=== PATIENT | female | born 1965 | race Caucasian/White ===

== ENCOUNTER 2021-03-24 13:18 | Emergency (ER) | payer OTHER, MEDICAID, SELFPAY ==
[2021-03-24] VITALS (36 sets, daily range): BP systolic 73–184; BP diastolic 49–119; PULSE 78–135; RESP 14–41; TEMP 36.3; O2SAT 89–100
[2021-03-24] MEDS: ONDANSETRON 4 MG/2 ML INJ IV ×2 (13:55→15:11)
[2021-03-24] MEDS: SODIUM CHLORIDE 0.9% 1,000 ML 150 ML IV ×2 (13:55→21:34)
[2021-03-24 13:58] LABS: Add Manual Diff / Slide Review NO; Basophils Absolute Auto 100 /uL (0-100); Basophils Percent Auto 0.6 % (0-2); Eosinophils Absolute Auto 0 /uL (0-450); Eosinophils Percent Auto 0.1 % (2-4); Hematocrit 43.3 % (36-46); Hemoglobin 14.4 g/dL (12.0-16.0); Lymphocytes Absolute Auto 300 /uL (1100-4500); Lymphocytes Percent Auto 2.3 % (25-40); Mean Corpuscular HGB Conc 33.3 % (30-36); Mean Corpuscular Hemoglobin 35.4 PG (26-34); Monocytes Absolute Auto 300 /uL (0-900); Monocytes Percent Auto 2.7 % (3-14); Neutrophils Absolute Auto 11600 /uL (1500-7000); Neutrophils Percent Auto 94.3 % (50-75); Platelet Count 129 X10^3/uL (150-400); Red Blood Cell Count 4.08 X10^6/uL (4.0-5.2); Red Cell Distribution Width 12.6 % (11.6-14.8); White Blood Cell Count 12.3 X10^3/uL (4.5-11.0)
--- NOTE | 2021-03-24 13:59 | ED_ITS ---
HPI - Nausea/Vomiting/Diarrhea <Eusebia Gutiérrez DO - Last Filed: 03/26/21 15:57> General Chief complaint: Nausea/Vomiting/Diarrhea Stated complaint: fall/ broke arm saturday/nausea since then Time Seen by Provider: 03/24/21 13:36 Source: patient Mode of arrival: Wheelchair Limitations: no limitations History of Present Illness HPI Narrative: 55-year-old female comes with complaint of breaking her left arm on Saturday or Saturday. She was seen in [place] she was diagnosed places sling. She has been taking Tylenol up to every 4-5 hours. Her 1st dose was 325 mg tablets but the she then switch to 500 mg tablets and was typically taking 2 every 4-5 hours which an average of 6000 mg for 24 hours. She has been doing this for the past several days. Patient states she became nauseated about 2 days after breaking her arm. She started having intermittent vomiting. She noticed her color has been a little bit yellow. She denies any other trauma. She denies hitting her head. No neck pain, no acute back pain. No chest pain or shortness of breath. She has felt a little lightheaded. She has not been eating or drinking well. She denies any abdominal pain. No back or flank pain. She has noted her urine has been quite dark. She has not appreciated any new changes to her stools. She does not take any daily medications. She does take a daily vitamin. She is currently traveling in an so she was concerned that maybe her drinking water had been contaminated. She lives in [place] and is traveling independently and visiting friends in the local area. Related Data Allergies Allergy/AdvReac Type Severity Reaction Status Date / Time aspirin Allergy Hives Verified 03/24/21 13:25 codeine Allergy Headache Verified 03/24/21 13:25 diazepam [From Valium] Allergy Seizure Verified 03/24/21 13:25 ibuprofen Allergy Swelling Verified 03/24/21 13:25 of Lip/Tongue/Throat morphine Allergy Difficulty Verified 03/24/21 13:25 Breathing Review of Systems <Eusebia Gutiérrez DO - Last Filed: 03/26/21 15:57> Review of Systems ROS Unobtainable: All systems reviewed & are unremarkable except as noted in HPI and below Patient History <Eusebia Gutiérrez DO - Last Filed: 03/26/21 15:57> Social History Smoking Status: Never smoker Smoking Status: Never smoker alcohol intake frequency: 0-2 drinks per day Alcohol type: wine Substance Use Type: does not use Exam <Eusebia Gutiérrez DO - Last Filed: 03/26/21 15:57> Narrative Exam Narrative: GENERAL: Alert and oriented x three, female in mild distress. Patient does appear jaundiced. HEENT: Head normocephalic, atraumatic, EOMI, possible scleral icterus. Pupils reactive, face symmetric, moist mucous membranes NECK: Supple, full range of motion CARDIOVASCULAR: Regular rate and rhythm without murmurs, rubs or gallops. RESPIRATORY: Breath sounds equal bilaterally, no wheezes rales or rhonchi. ABDOMEN: Soft, nontender on exam nondistended. Normoactive bowel sounds all 4 quadrants. No guarding or rebound, rigidity, no mass : No CVA tenderness EXTREMITIES: Normal range of motion except of the right upper extremity patient is placed in a sling. No clubbing or edema. Neurovascularly intact. 2+ pulses bilateral upper extremities. Patient does have some bruising of the left wrist. She also has some bruising of the right knee. NEUROLOGICAL: Cranial nerves II through XII grossly intact. Moving all extremities SKIN: Warm, dry, no petechiae, no rashes or lesions. Initial Vital Signs Initial Vital Signs: Vital Signs Temperature 97.4 F L 03/24/21 13:25 Pulse Rate 87 03/24/21 13:25 Respiratory Rate 18 03/24/21 13:25 Blood Pressure 73/49 L 03/24/21 13:25 Pulse Oximetry 100 03/24/21 13:25 <Dionisio Adam DO - Last Filed: 03/25/21 04:03> Initial Vital Signs Initial Vital Signs: Vital Signs Temperature 97.4 F L 03/24/21 13:25 Pulse Rate 87 03/24/21 13:25 Respiratory Rate 18 03/24/21 13:25 Blood Pressure 73/49 L 03/24/21 13:25 Pulse Oximetry 100 03/24/21 13:25 Course <DO Jamie Nash Last Filed: 03/26/21 15:57> Orders Ordered: Discontinued Medications Sodium Chloride (Normal Saline 0.9%) 1,000 mls @ 150 mls/hr IV CONT CHARLY Last Infusion: 03/25/21 00:01 Dose: 0 mls/hr Documented by: Admin: 03/24/21 21:34 Dose: 150 mls/hr Documented by: Infusion: 03/24/21 18:25 Dose: 0 mls/hr Documented by: Admin: 03/24/21 13:55 Dose: 150 mls/hr Documented by: ANGELINE Acetylcysteine 10.71812 g/ (Dextrose) 252.7303 mls @ 252.73 mls/hr IV NOW ONE Stop: 03/24/21 13:55 Last Infusion: 03/24/21 16:17 Dose: 0 mls/hr Documented by: Admin: 03/24/21 14:31 Dose: 252.73 mls/hr Documented by: ANGELINE Acetylcysteine 3.37344 g/ (Dextrose) 517.5768 mls @ 129.394 mls/hr IV NOW ONE Stop: 03/24/21 14:16 Last Infusion: 03/24/21 18:50 Dose: 0 mls/hr Documented by: Admin: 03/24/21 16:17 Dose: 129.394 mls/hr Documented by: ANGELINE Acetylcysteine 7.0307 g/ (Dextrose) 1,035.1535 mls @ 64.697 mls/hr IV NOW ONE Stop: 03/24/21 14:16 Last Admin: 03/24/21 18:53 Dose: Not Given Documented by: ANGELINE Sodium Chloride (Normal Saline 0.9%) 1,000 mls @ 1,000 mls/hr IV BOLUS ONE Stop: 03/24/21 18:08 Last Infusion: 03/24/21 18:53 Dose: 0 mls/hr Documented by: Admin: 03/24/21 17:32 Dose: 1,000 mls/hr Documented by: ANGELINE Acetylcysteine 33.7 g/ Sodium (Chloride) 1,500 mls @ 62.5 mls/hr IV CONT CHARLY Stop: 03/25/21 17:44 Last Infusion: 03/25/21 00:01 Dose: 0 mls/hr Documented by: Admin: 03/24/21 18:51 Dose: 62.5 mls/hr Documented by: ANGELINE Acyclovir 700 mg/ Dextrose 100 mls @ 100 mls/hr IV NOW ONE Stop: 03/24/21 18:31 Last Infusion: 03/24/21 21:06 Dose: 0 mls/hr Documented by: Admin: 03/24/21 19:07 Dose: 100 mls/hr Documented by: ANGELINE Lorazepam (Lorazepam 2 Mg/Ml Inj) 0.5 mg IV Q4HR PRN PRN Reason: nausea/vomting Last Admin: 03/24/21 23:15 Dose: 0.5 mg Documented by: Admin: 03/24/21 16:17 Dose: 0.5 mg Documented by: ANGELINE Fomepizole 1.5g/1. (5ml) 1.1 each IV NOW ONE Stop: 03/24/21 20:31 Last Admin: 03/24/21 21:34 Dose: 1.1 each Documented by: ADELA Fomepizole 1.5g/1. (5ml) 0.7 each IV NOW ONE Stop: 03/25/21 08:31 Ondansetron HCl (Ondansetron 4 Mg/2 Ml Inj) 4 mg IV NOW ONE Stop: 03/24/21 13:45 Last Admin: 03/24/21 13:55 Dose: 4 mg Documented by: ANGELINE Ondansetron HCl (Ondansetron 4 Mg/2 Ml Inj) 4 mg IV NOW ONE Stop: 03/24/21 15:07 Last Admin: 03/24/21 15:11 Dose: 4 mg Documented by: ANGELINE Consultations Consultation #1: Poison control-agrees with neck at current dose of 150 mix per kg. patient may need hemodialysis at some point. Patient may require transfer. Poison Control did re-contacted lactate noted to be elevating. They recommend Fomepizole and also in the loading dose. At this time they do not have any additional recommendations young looking for any other potential sources of symptoms. Consultation #2: Dr. Renee hepatology at [facility]. Patient's labs, findings today were reviewed including her ABG and rising lactate. They do feel patient would benefit from transferring to [facility]. They are going to look for beds. We will need to speak with the hospitalist service. She does recommend continuing NAC beyond 48 hours if patient is still at [place]. She also asked that we obtain ANIYA profile, CMV, EBV, varicella, HSP and cover patient with IV acyclovir. She is happy to speak with us if patient has any worsening change. Vital Signs Vital signs: Vital Signs - 8 hr 03/24/21 20:00 03/24/21 20:30 03/24/21 21:00 Pulse Rate 128 H 123 H 123 H Respiratory Rate 18 22 21 Blood Pressure Pulse Oximetry 98 100 98 03/24/21 21:30 03/24/21 21:41 03/24/21 21:45 Pulse Rate 128 H 125 H 122 H Respiratory Rate 16 18 15 Blood Pressure 117/57 L 116/59 L Pulse Oximetry 99 100 100 03/24/21 22:00 03/24/21 22:15 03/24/21 22:30 Pulse Rate 121 H 121 H 122 H Respiratory Rate 18 17 16 Blood Pressure 120/57 L 114/59 L 116/58 L Pulse Oximetry 100 99 99 03/24/21 22:45 03/24/21 23:00 Pulse Rate 123 H 123 H Respiratory Rate 19 19 Blood Pressure 125/62 129/63 Pulse Oximetry 99 100 <Dionisio Adam, - Last Filed: 03/25/21 04:03> Course Course Narrative: Patient received in sign-out from Dr. Gutiérrez. I have performed an independent history and physical exam. She continues to be at baseline, therapies as directed by previous providers are continuing. Patient is aware of and in agreement with the transfer and understands the reasons behind this need. Orders Ordered: Discontinued Medications Sodium Chloride (Normal Saline 0.9%) 1,000 mls @ 150 mls/hr IV CONT CHARLY Last Infusion: 03/25/21 00:01 Dose: 0 mls/hr Documented by: Admin: 03/24/21 21:34 Dose: 150 mls/hr Documented by: Infusion: 03/24/21 18:25 Dose: 0 mls/hr Documented by: Admin: 03/24/21 13:55 Dose: 150 mls/hr Documented by: ANGELINE Acetylcysteine 10.85689 g/ (Dextrose) 252.7303 mls @ 252.73 mls/hr IV NOW ONE Stop: 03/24/21 13:55 Last Infusion: 03/24/21 16:17 Dose: 0 mls/hr Documented by: Admin: 03/24/21 14:31 Dose: 252.73 mls/hr Documented by: ANGELINE Acetylcysteine 3.41005 g/ (Dextrose) 517.5768 mls @ 129.394 mls/hr IV NOW ONE Stop: 03/24/21 14:16 Last Infusion: 03/24/21 18:50 Dose: 0 mls/hr Documented by: Admin: 03/24/21 16:17 Dose: 129.394 mls/hr Documented by: ANGELINE Acetylcysteine 7.0307 g/ (Dextrose) 1,035.1535 mls @ 64.697 mls/hr IV NOW ONE Stop: 03/24/21 14:16 Last Admin: 03/24/21 18:53 Dose: Not Given Documented by: ANGELINE Sodium Chloride (Normal Saline 0.9%) 1,000 mls @ 1,000 mls/hr IV BOLUS ONE Stop: 03/24/21 18:08 Last Infusion: 03/24/21 18:53 Dose: 0 mls/hr Documented by: Admin: 03/24/21 17:32 Dose: 1,000 mls/hr Documented by: ANGELINE Acetylcysteine 33.7 g/ Sodium (Chloride) 1,500 mls @ 62.5 mls/hr IV CONT CHARLY Stop: 03/25/21 17:44 Last Infusion: 03/25/21 00:01 Dose: 0 mls/hr Documented by: Admin: 03/24/21 18:51 Dose: 62.5 mls/hr Documented by: ANGELINE Acyclovir 700 mg/ Dextrose 100 mls @ 100 mls/hr IV NOW ONE Stop: 03/24/21 18:31 Last Infusion: 03/24/21 21:06 Dose: 0 mls/hr Documented by: Admin: 03/24/21 19:07 Dose: 100 mls/hr Documented by: ANGELINE Lorazepam (Lorazepam 2 Mg/Ml Inj) 0.5 mg IV Q4HR PRN PRN Reason: nausea/vomting Last Admin: 03/24/21 23:15 Dose: 0.5 mg Documented by: Admin: 03/24/21 16:17 Dose: 0.5 mg Documented by: ANGELINE Fomepizole 1.5g/1. (5ml) 1.1 each IV NOW ONE Stop: 03/24/21 20:31 Last Admin: 03/24/21 21:34 Dose: 1.1 each Documented by: ADELA Fomepizole 1.5g/1. (5ml) 0.7 each IV NOW ONE Stop: 03/25/21 08:31 Ondansetron HCl (Ondansetron 4 Mg/2 Ml Inj) 4 mg IV NOW ONE Stop: 03/24/21 13:45 Last Admin: 03/24/21 13:55 Dose: 4 mg Documented by: ANGELINE Ondansetron HCl (Ondansetron 4 Mg/2 Ml Inj) 4 mg IV NOW ONE Stop: 03/24/21 15:07 Last Admin: 03/24/21 15:11 Dose: 4 mg Documented by: ANGELINE Vital Signs Vital signs: Vital Signs - 8 hr 03/24/21 20:00 03/24/21 20:30 03/24/21 21:00 Pulse Rate 128 H 123 H 123 H Respiratory Rate 18 22 21 Blood Pressure Pulse Oximetry 98 100 98 03/24/21 21:30 03/24/21 21:41 03/24/21 21:45 Pulse Rate 128 H 125 H 122 H Respiratory Rate 16 18 15 Blood Pressure 117/57 L 116/59 L Pulse Oximetry 99 100 100 03/24/21 22:00 03/24/21 22:15 03/24/21 22:30 Pulse Rate 121 H 121 H 122 H Respiratory Rate 18 17 16 Blood Pressure 120/57 L 114/59 L 116/58 L Pulse Oximetry 100 99 99 03/24/21 22:45 03/24/21 23:00 Pulse Rate 123 H 123 H Respiratory Rate 19 19 Blood Pressure 125/62 129/63 Pulse Oximetry 99 100 MDM - Nausea/Vomiting/Diarrhea <Eusebia Gutiérrez DO - Last Filed: 03/26/21 15:57> Lab Data Result diagrams: 03/24/21 13:40 03/24/21 13:40 Labs: Lab Results 03/24/21 03/24/21 03/24/21 Range/Units 13:40 13:40 13:40 WBC 12.3 H (4.5-11.0) X10^3/uL RBC 4.08 (4.0-5.2) X10^6/uL Hgb 14.4 (12.0-16.0) g/dL Hct 43.3 (36-46) % MCV 106.0 H (80-100) fL MCH 35.4 H (26-34) PG MCHC 33.3 (30-36) % RDW 12.6 (11.6-14.8) % Plt Count 129 L (150-400) X10^3/uL Neut % (Auto) 94.3 H (50-75) % Lymph % (Auto) 2.3 L (25-40) % Brooks % (Auto) 2.7 L (3-14) % Eos % (Auto) 0.1 L (2-4) % Baso % (Auto) 0.6 (0-2) % Neut # (Auto) 91515 H (6143-2275) /uL Lymph # (Auto) 300 L (8585-4567) /uL Brooks # (Auto) 300 (0-900) /uL Eos # (Auto) 0 (0-450) /uL Baso # (Auto) 100 (0-100) /uL PT (10.1-12.7) SECONDS INR (0.9-1.3) ABG pH (7.35-7.45) ABG pCO2 (35-45) mmHg ABG pO2 (80-100) mmHg ABG HCO3 (22-26) mmol/L ABG Total CO2 (21-31) mmol/L ABG O2 Saturation (95-100) % ABG Base Excess (-2-2) mmol/L FiO2 Sodium 130 L (137-145) mmol/L Potassium 4.5 (3.4-5.1) mmol/L Chloride 95 L (98-107) mmol/L Carbon Dioxide 21 L (22-32) mmol/L BUN 10 (7-17) mg/dL Creatinine 0.70 (0.52-1.04) mg/dL Estimated GFR > 60.0 (>60) mL/min BUN/Creatinine Ratio 14.3 (6-22) Glucose 63 L (70-100) mg/dL Lactate (0.7-2.1) mmol/L Calcium 9.1 (8.4-10.2) mg/dL Total Bilirubin 10.0 H (0.2-1.3) mg/dL Conjugated Bilirubin (0.0-0.3) md/dL Unconjugated Bilirubin (0.0-1.1) mg/dL AST 5719 H (14-36) IU/L ALT 2353 H (<35) IU/L Alkaline Phosphatase 110 (38-126) U/L Ammonia (9-30) umol/L Troponin I < 0.012 (0.01-0.034) ng/mL Total Protein 7.4 (6.3-8.2) g/dL Albumin 4.3 (3.5-5.0) g/dL Globulin 3.1 (1.7-4.1) g/dL Albumin/Globulin Ratio 1.4 (1.0-2.8) Lipase (23-300) U/L Salicylates (<20) mg/dL Acetaminophen 14 (10-30) ug/mL Ethyl Alcohol ( - 10) mg/dL SARS-CoV-2 (PCR) (Negative) Hepatitis A IgM Ab (Negative) Hep Bs Antigen (Negative) Hep B Core IgM Ab (Negative) Hepatitis C Antibody (0.0-0.9) s/co ratio Hep C Ab Signal/Cutoff (.) 03/24/21 03/24/21 03/24/21 Range/Units 13:40 13:40 14:20 WBC (4.5-11.0) X10^3/uL RBC (4.0-5.2) X10^6/uL Hgb (12.0-16.0) g/dL Hct (36-46) % MCV (80-100) fL MCH (26-34) PG MCHC (30-36) % RDW (11.6-14.8) % Plt Count (150-400) X10^3/uL Neut % (Auto) (50-75) % Lymph % (Auto) (25-40) % Brooks % (Auto) (3-14) % Eos % (Auto) (2-4) % Baso % (Auto) (0-2) % Neut # (Auto) (5125-9136) /uL Lymph # (Auto) (4665-8061) /uL Brooks # (Auto) (0-900) /uL Eos # (Auto) (0-450) /uL Baso # (Auto) (0-100) /uL PT 34.5 H (10.1-12.7) SECONDS INR 3.0 H (0.9-1.3) ABG pH (7.35-7.45) ABG pCO2 (35-45) mmHg ABG pO2 (80-100) mmHg ABG HCO3 (22-26) mmol/L ABG Total CO2 (21-31) mmol/L ABG O2 Saturation (95-100) % ABG Base Excess (-2-2) mmol/L FiO2 Sodium (137-145) mmol/L Potassium (3.4-5.1) mmol/L Chloride (98-107) mmol/L Carbon Dioxide (22-32) mmol/L BUN (7-17) mg/dL Creatinine (0.52-1.04) mg/dL Estimated GFR (>60) mL/min BUN/Creatinine Ratio (6-22) Glucose (70-100) mg/dL Lactate 4.7 H* (0.7-2.1) mmol/L Calcium (8.4-10.2) mg/dL Total Bilirubin 9.6 H (0.2-1.3) mg/dL Conjugated Bilirubin 2.9 H (0.0-0.3) md/dL Unconjugated Bilirubin 5.4 H (0.0-1.1) mg/dL AST 5719 H (14-36) IU/L ALT 2353 H (<35) IU/L Alkaline Phosphatase 105 (38-126) U/L Ammonia (9-30) umol/L Troponin I (0.01-0.034) ng/mL Total Protein 7.3 (6.3-8.2) g/dL Albumin 4.3 (3.5-5.0) g/dL Globulin 3.0 (1.7-4.1) g/dL Albumin/Globulin Ratio 1.4 (1.0-2.8) Lipase 72 (23-300) U/L Salicylates < 1.0 (<20) mg/dL Acetaminophen (10-30) ug/mL Ethyl Alcohol < 10 ( - 10) mg/dL SARS-CoV-2 (PCR) (Negative) Hepatitis A IgM Ab (Negative) Hep Bs Antigen (Negative) Hep B Core IgM Ab (Negative) Hepatitis C Antibody (0.0-0.9) s/co ratio Hep C Ab Signal/Cutoff (.) 03/24/21 03/24/21 03/24/21 Range/Units 16:21 16:21 17:11 WBC (4.5-11.0) X10^3/uL RBC (4.0-5.2) X10^6/uL Hgb (12.0-16.0) g/dL Hct (36-46) % MCV (80-100) fL MCH (26-34) PG MCHC (30-36) % RDW (11.6-14.8) % Plt Count (150-400) X10^3/uL Neut % (Auto) (50-75) % Lymph % (Auto) (25-40) % Brooks % (Auto) (3-14) % Eos % (Auto) (2-4) % Baso % (Auto) (0-2) % Neut # (Auto) (2043-4642) /uL Lymph # (Auto) (9850-6652) /uL Brooks # (Auto) (0-900) /uL Eos # (Auto) (0-450) /uL Baso # (Auto) (0-100) /uL PT (10.1-12.7) SECONDS INR (0.9-1.3) ABG pH (7.35-7.45) ABG pCO2 (35-45) mmHg ABG pO2 (80-100) mmHg ABG HCO3 (22-26) mmol/L ABG Total CO2 (21-31) mmol/L ABG O2 Saturation (95-100) % ABG Base Excess (-2-2) mmol/L FiO2 Sodium (137-145) mmol/L Potassium (3.4-5.1) mmol/L Chloride (98-107) mmol/L Carbon Dioxide (22-32) mmol/L BUN (7-17) mg/dL Creatinine (0.52-1.04) mg/dL Estimated GFR (>60) mL/min BUN/Creatinine Ratio (6-22) Glucose (70-100) mg/dL Lactate 5.1 H* (0.7-2.1) mmol/L Calcium (8.4-10.2) mg/dL Total Bilirubin (0.2-1.3) mg/dL Conjugated Bilirubin (0.0-0.3) md/dL Unconjugated Bilirubin (0.0-1.1) mg/dL AST (14-36) IU/L ALT (<35) IU/L Alkaline Phosphatase (38-126) U/L Ammonia (9-30) umol/L Troponin I (0.01-0.034) ng/mL Total Protein (6.3-8.2) g/dL Albumin (3.5-5.0) g/dL Globulin (1.7-4.1) g/dL Albumin/Globulin Ratio (1.0-2.8) Lipase (23-300) U/L Salicylates (<20) mg/dL Acetaminophen (10-30) ug/mL Ethyl Alcohol ( - 10) mg/dL SARS-CoV-2 (PCR) Negative (Negative) Hepatitis A IgM Ab Negative (Negative) Hep Bs Antigen Negative (Negative) Hep B Core IgM Ab Negative (Negative) Hepatitis C Antibody 0.1 (0.0-0.9) s/co ratio Hep C Ab Signal/Cutoff Comment (.) 03/24/21 03/24/21 03/24/21 Range/Units 17:13 18:47 23:10 WBC (4.5-11.0) X10^3/uL RBC (4.0-5.2) X10^6/uL Hgb (12.0-16.0) g/dL Hct (36-46) % MCV (80-100) fL MCH (26-34) PG MCHC (30-36) % RDW (11.6-14.8) % Plt Count (150-400) X10^3/uL Neut % (Auto) (50-75) % Lymph % (Auto) (25-40) % Brooks % (Auto) (3-14) % Eos % (Auto) (2-4) % Baso % (Auto) (0-2) % Neut # (Auto) (2264-0155) /uL Lymph # (Auto) (9193-5001) /uL Brooks # (Auto) (0-900) /uL Eos # (Auto) (0-450) /uL Baso # (Auto) (0-100) /uL PT (10.1-12.7) SECONDS INR (0.9-1.3) ABG pH 7.42 (7.35-7.45) ABG pCO2 32.0 L (35-45) mmHg ABG pO2 95 (80-100) mmHg ABG HCO3 21 L (22-26) mmol/L ABG Total CO2 22 (21-31) mmol/L ABG O2 Saturation 98 (95-100) % ABG Base Excess -3.0 L (-2-2) mmol/L FiO2 21 Sodium (137-145) mmol/L Potassium (3.4-5.1) mmol/L Chloride (98-107) mmol/L Carbon Dioxide (22-32) mmol/L BUN (7-17) mg/dL Creatinine (0.52-1.04) mg/dL Estimated GFR (>60) mL/min BUN/Creatinine Ratio (6-22) Glucose (70-100) mg/dL Lactate 2.5 H (0.7-2.1) mmol/L Calcium (8.4-10.2) mg/dL Total Bilirubin (0.2-1.3) mg/dL Conjugated Bilirubin (0.0-0.3) md/dL Unconjugated Bilirubin (0.0-1.1) mg/dL AST (14-36) IU/L ALT (<35) IU/L Alkaline Phosphatase (38-126) U/L Ammonia < 9 L (9-30) umol/L Troponin I (0.01-0.034) ng/mL Total Protein (6.3-8.2) g/dL Albumin (3.5-5.0) g/dL Globulin (1.7-4.1) g/dL Albumin/Globulin Ratio (1.0-2.8) Lipase (23-300) U/L Salicylates (<20) mg/dL Acetaminophen (10-30) ug/mL Ethyl Alcohol ( - 10) mg/dL SARS-CoV-2 (PCR) (Negative) Hepatitis A IgM Ab (Negative) Hep Bs Antigen (Negative) Hep B Core IgM Ab (Negative) Hepatitis C Antibody (0.0-0.9) s/co ratio Hep C Ab Signal/Cutoff (.) Imaging Data US - abdomen: Radiologist's Impression: [address] [id number] ReportSigned Patient: Scarlet Guzman JMR#: [id number]: 1965Acct:[id number]/Sex: 55 / FDate of Service: 03/24/21Loc: EDAccession Number: [id number] Procedure: US abdomen complete Ordering Provider: Eusebia Gutiérrez D.O. PROCEDURE: US ABDOMEN COMPLETE INDICATIONS: LIVER FAILURE - PROBABLE TYLENOL OVERDOSE TECHNIQUE: Real-time scanning was performed of the abdominal and retroperitoneal organs, with image documentation. Color and pulse Doppler interrogation was also performed of the hepatic and splenic vessels, or of the lesion of interest. COMPARISON: None. FINDINGS: Liver: Hepatic parenchyma shows diffuse increased echogenicity consistent with fatty infiltration. No focal lesion. Gallbladder: Sonolucent without evidence cholelithiasis, gallbladder wall thickening or pericholecystic fluid. No sonographic Guadarrama sign. Biliary ducts: No intrahepatic biliary ductal dilatation. Extrahepatic bile duct is not well seen intrahepatic bile duct is within normal limits 1.4 m. Spleen: Spleen is normal in size and homogeneous in echotexture. Pancreas: Visualized portions of the pancreas appear normal. Kidneys: Both kidneys are normal in size and echotexture. Right kidney measures 9.9 cm long; left kidney measures 10.5 cm long. No hydronephrosis or nephrolithiasis. No solid renal masses. Aorta: Visualized abdominal aorta is normal in caliber at less than 3 cm. Iliacs: Proximal common iliac arteries are normal in caliber at less than 2.5 cm. IVC: Intrahepatic inferior vena cava is patent. Miscellaneous: No free abdominal fluid. IMPRESSION: Hepatic fatty infiltration without focal mass lesion Approved by: Denis Boswell M.D. on 03/24/2021 at 14:25 ECG Data Attestation: I personally reviewed and interpreted this ECG as follows: Prior ECG tracings: available for review Interpretation: Sinus rhythm rate of 78 UT 140 QRS [address] QTC [address] No acute ST changes noted. MDM Narrative Medical decision making narrative: Patient is a 55-year-old female with a history of alcohol abuse who states she has decreased her intake significantly in the last several months with some unintentional Tylenol overdose after breaking her arm earlier in the week and taking possibly 6000 mg or more of Tylenol daily. Patient has significantly elevated LFTs, INR as well as low platelets. Patient case was discussed with poison Control who recommends putting her on the higher dose NAC. There was some delay as it was difficult for us to get the protocol but she was ultimately started on this. Secondary to her rising lactate they also recommend Fomepizole which we do not have available but is being sent over stat from [facility]. Patient was also started on IV acyclovir as per hepatology as recommendations from [facility] and plan is for patient to transfer there as soon as a bed is available. If patient has worsening symptoms in the short term we are to recontact. They also asked us to send several infectious markers which included below as well as an ammonia level. At this time patient's mentation has been appropriate she has not been encephalopathic. She is signed out to Dr. Adam while awaiting transfer. <Dionisio Adam, DO - Last Filed: 03/25/21 04:03> Lab Data Labs: Lab Results 03/24/21 03/24/21 03/24/21 Range/Units 13:40 13:40 13:40 WBC 12.3 H (4.5-11.0) X10^3/uL RBC 4.08 (4.0-5.2) X10^6/uL Hgb 14.4 (12.0-16.0) g/dL Hct 43.3 (36-46) % MCV 106.0 H (80-100) fL MCH 35.4 H (26-34) PG MCHC 33.3 (30-36) % RDW 12.6 (11.6-14.8) % Plt Count 129 L (150-400) X10^3/uL Neut % (Auto) 94.3 H (50-75) % Lymph % (Auto) 2.3 L (25-40) % Brooks % (Auto) 2.7 L (3-14) % Eos % (Auto) 0.1 L (2-4) % Baso % (Auto) 0.6 (0-2) % Neut # (Auto) 27920 H (2518-5877) /uL Lymph # (Auto) 300 L (3069-9776) /uL Brooks # (Auto) 300 (0-900) /uL Eos # (Auto) 0 (0-450) /uL Baso # (Auto) 100 (0-100) /uL PT (10.1-12.7) SECONDS INR (0.9-1.3) ABG pH (7.35-7.45) ABG pCO2 (35-45) mmHg ABG pO2 (80-100) mmHg ABG HCO3 (22-26) mmol/L ABG Total CO2 (21-31) mmol/L ABG O2 Saturation (95-100) % ABG Base Excess (-2-2) mmol/L FiO2 Sodium 130 L (137-145) mmol/L Potassium 4.5 (3.4-5.1) mmol/L Chloride 95 L (98-107) mmol/L Carbon Dioxide 21 L (22-32) mmol/L BUN 10 (7-17) mg/dL Creatinine 0.70 (0.52-1.04) mg/dL Estimated GFR > 60.0 (>60) mL/min BUN/Creatinine Ratio 14.3 (6-22) Glucose 63 L (70-100) mg/dL Lactate (0.7-2.1) mmol/L Calcium 9.1 (8.4-10.2) mg/dL Total Bilirubin 10.0 H (0.2-1.3) mg/dL Conjugated Bilirubin (0.0-0.3) md/dL Unconjugated Bilirubin (0.0-1.1) mg/dL AST 5719 H (14-36) IU/L ALT 2353 H (<35) IU/L Alkaline Phosphatase 110 (38-126) U/L Ammonia (9-30) umol/L Troponin I < 0.012 (0.01-0.034) ng/mL Total Protein 7.4 (6.3-8.2) g/dL Albumin 4.3 (3.5-5.0) g/dL Globulin 3.1 (1.7-4.1) g/dL Albumin/Globulin Ratio 1.4 (1.0-2.8) Lipase (23-300) U/L Salicylates (<20) mg/dL Acetaminophen 14 (10-30) ug/mL Ethyl Alcohol ( - 10) mg/dL SARS-CoV-2 (PCR) (Negative) Hepatitis A IgM Ab (Negative) Hep Bs Antigen (Negative) Hep B Core IgM Ab (Negative) Hepatitis C Antibody (0.0-0.9) s/co ratio Hep C Ab Signal/Cutoff (.) 03/24/21 03/24/21 03/24/21 Range/Units 13:40 13:40 14:20 WBC (4.5-11.0) X10^3/uL RBC (4.0-5.2) X10^6/uL Hgb (12.0-16.0) g/dL Hct (36-46) % MCV (80-100) fL MCH (26-34) PG MCHC (30-36) % RDW (11.6-14.8) % Plt Count (150-400) X10^3/uL Neut % (Auto) (50-75) % Lymph % (Auto) (25-40) % Brooks % (Auto) (3-14) % Eos % (Auto) (2-4) % Baso % (Auto) (0-2) % Neut # (Auto) (1422-6499) /uL Lymph # (Auto) (2153-6766) /uL Brooks # (Auto) (0-900) /uL Eos # (Auto) (0-450) /uL Baso # (Auto) (0-100) /uL PT 34.5 H (10.1-12.7) SECONDS INR 3.0 H (0.9-1.3) ABG pH (7.35-7.45) ABG pCO2 (35-45) mmHg ABG pO2 (80-100) mmHg ABG HCO3 (22-26) mmol/L ABG Total CO2 (21-31) mmol/L ABG O2 Saturation (95-100) % ABG Base Excess (-2-2) mmol/L FiO2 Sodium (137-145) mmol/L Potassium (3.4-5.1) mmol/L Chloride (98-107) mmol/L Carbon Dioxide (22-32) mmol/L BUN (7-17) mg/dL Creatinine (0.52-1.04) mg/dL Estimated GFR (>60) mL/min BUN/Creatinine Ratio (6-22) Glucose (70-100) mg/dL Lactate 4.7 H* (0.7-2.1) mmol/L Calcium (8.4-10.2) mg/dL Total Bilirubin 9.6 H (0.2-1.3) mg/dL Conjugated Bilirubin 2.9 H (0.0-0.3) md/dL Unconjugated Bilirubin 5.4 H (0.0-1.1) mg/dL AST 5719 H (14-36) IU/L ALT 2353 H (<35) IU/L Alkaline Phosphatase 105 (38-126) U/L Ammonia (9-30) umol/L Troponin I (0.01-0.034) ng/mL Total Protein 7.3 (6.3-8.2) g/dL Albumin 4.3 (3.5-5.0) g/dL Globulin 3.0 (1.7-4.1) g/dL Albumin/Globulin Ratio 1.4 (1.0-2.8) Lipase 72 (23-300) U/L Salicylates < 1.0 (<20) mg/dL Acetaminophen (10-30) ug/mL Ethyl Alcohol < 10 ( - 10) mg/dL SARS-CoV-2 (PCR) (Negative) Hepatitis A IgM Ab (Negative) Hep Bs Antigen (Negative) Hep B Core IgM Ab (Negative) Hepatitis C Antibody (0.0-0.9) s/co ratio Hep C Ab Signal/Cutoff (.) 03/24/21 03/24/21 03/24/21 Range/Units 16:21 16:21 17:11 WBC (4.5-11.0) X10^3/uL RBC (4.0-5.2) X10^6/uL Hgb (12.0-16.0) g/dL Hct (36-46) % MCV (80-100) fL MCH (26-34) PG MCHC (30-36) % RDW (11.6-14.8) % Plt Count (150-400) X10^3/uL Neut % (Auto) (50-75) % Lymph % (Auto) (25-40) % Brooks % (Auto) (3-14) % Eos % (Auto) (2-4) % Baso % (Auto) (0-2) % Neut # (Auto) (7662-9527) /uL Lymph # (Auto) (1552-3623) /uL Brooks # (Auto) (0-900) /uL Eos # (Auto) (0-450) /uL Baso # (Auto) (0-100) /uL PT (10.1-12.7) SECONDS INR (0.9-1.3) ABG pH (7.35-7.45) ABG pCO2 (35-45) mmHg ABG pO2 (80-100) mmHg ABG HCO3 (22-26) mmol/L ABG Total CO2 (21-31) mmol/L ABG O2 Saturation (95-100) % ABG Base Excess (-2-2) mmol/L FiO2 Sodium (137-145) mmol/L Potassium (3.4-5.1) mmol/L Chloride (98-107) mmol/L Carbon Dioxide (22-32) mmol/L BUN (7-17) mg/dL Creatinine (0.52-1.04) mg/dL Estimated GFR (>60) mL/min BUN/Creatinine Ratio (6-22) Glucose (70-100) mg/dL Lactate 5.1 H* (0.7-2.1) mmol/L Calcium (8.4-10.2) mg/dL Total Bilirubin (0.2-1.3) mg/dL Conjugated Bilirubin (0.0-0.3) md/dL Unconjugated Bilirubin (0.0-1.1) mg/dL AST (14-36) IU/L ALT (<35) IU/L Alkaline Phosphatase (38-126) U/L Ammonia (9-30) umol/L Troponin I (0.01-0.034) ng/mL Total Protein (6.3-8.2) g/dL Albumin (3.5-5.0) g/dL Globulin (1.7-4.1) g/dL Albumin/Globulin Ratio (1.0-2.8) Lipase (23-300) U/L Salicylates (<20) mg/dL Acetaminophen (10-30) ug/mL Ethyl Alcohol ( - 10) mg/dL SARS-CoV-2 (PCR) Negative (Negative) Hepatitis A IgM Ab Negative (Negative) Hep Bs Antigen Negative (Negative) Hep B Core IgM Ab Negative (Negative) Hepatitis C Antibody 0.1 (0.0-0.9) s/co ratio Hep C Ab Signal/Cutoff Comment (.) 03/24/21 03/24/21 03/24/21 Range/Units 17:13 18:47 23:10 WBC (4.5-11.0) X10^3/uL RBC (4.0-5.2) X10^6/uL Hgb (12.0-16.0) g/dL Hct (36-46) % MCV (80-100) fL MCH (26-34) PG MCHC (30-36) % RDW (11.6-14.8) % Plt Count (150-400) X10^3/uL Neut % (Auto) (50-75) % Lymph % (Auto) (25-40) % Brooks % (Auto) (3-14) % Eos % (Auto) (2-4) % Baso % (Auto) (0-2) % Neut # (Auto) (8055-0027) /uL Lymph # (Auto) (7687-5607) /uL Brooks # (Auto) (0-900) /uL Eos # (Auto) (0-450) /uL Baso # (Auto) (0-100) /uL PT (10.1-12.7) SECONDS INR (0.9-1.3) ABG pH 7.42 (7.35-7.45) ABG pCO2 32.0 L (35-45) mmHg ABG pO2 95 (80-100) mmHg ABG HCO3 21 L (22-26) mmol/L ABG Total CO2 22 (21-31) mmol/L ABG O2 Saturation 98 (95-100) % ABG Base Excess -3.0 L (-2-2) mmol/L FiO2 21 Sodium (137-145) mmol/L Potassium (3.4-5.1) mmol/L Chloride (98-107) mmol/L Carbon Dioxide (22-32) mmol/L BUN (7-17) mg/dL Creatinine (0.52-1.04) mg/dL Estimated GFR (>60) mL/min BUN/Creatinine Ratio (6-22) Glucose (70-100) mg/dL Lactate 2.5 H (0.7-2.1) mmol/L Calcium (8.4-10.2) mg/dL Total Bilirubin (0.2-1.3) mg/dL Conjugated Bilirubin (0.0-0.3) md/dL Unconjugated Bilirubin (0.0-1.1) mg/dL AST (14-36) IU/L ALT (<35) IU/L Alkaline Phosphatase (38-126) U/L Ammonia < 9 L (9-30) umol/L Troponin I (0.01-0.034) ng/mL Total Protein (6.3-8.2) g/dL Albumin (3.5-5.0) g/dL Globulin (1.7-4.1) g/dL Albumin/Globulin Ratio (1.0-2.8) Lipase (23-300) U/L Salicylates (<20) mg/dL Acetaminophen (10-30) ug/mL Ethyl Alcohol ( - 10) mg/dL SARS-CoV-2 (PCR) (Negative) Hepatitis A IgM Ab (Negative) Hep Bs Antigen (Negative) Hep B Core IgM Ab (Negative) Hepatitis C Antibody (0.0-0.9) s/co ratio Hep C Ab Signal/Cutoff (.) Critical Care Time <Eusebia Gutiérrez, - Last Filed: 03/26/21 15:57> Critical Care Time Critical Care Time: Yes Attestation: The high probability of a clinically significant, sudden or life threatening deterioration of the [hepatic, renal, neurologic] system(s) required my full and direct attention, intervention and personal management. The aggregate critical care time was [] minutes. This time is in addition to time spent performing reported procedures but includes the following: [x] Data Review and interpretation [x] Patient assessment and monitoring of vital signs [x] Documentation [x] Medication orders and management <Dionisio Adam DO - Last Filed: 03/25/21 04:03> Critical Care Time Total Critical Care Time: 45 Attestation: The high probability of a clinically significant, sudden or life threatening deterioration of the [hepatic, renal, neurologic] system(s) required my full and direct attention, intervention and personal management. The aggregate critical care time was [45] minutes. This time is in addition to time spent performing reported procedures but includes the following: [x] Data Review and interpretation [x] Patient assessment and monitoring of vital signs [x] Documentation [x] Medication orders and management Discharge Plan Departure Patient Disposition: [facility] Clinical Impression: Acute liver failure, Unintentional Tylenol overdose
--- NOTE | 2021-03-24 14:00 | PC.NURSE ---
Pts skin has a yellow tint to it and her eyes are yellow
[2021-03-24 14:01] LABS: Albumin 4.3 g/dL (3.5-5.0); Albumin Globulin Ratio 1.4 (1.0-2.8); Alkaline Phosphatase 110 U/L (38-126); BUN Creatinine Ratio 14.3 (6-22); Blood Urea Nitrogen 10 mg/dL (7-17); Calcium 9.1 mg/dL (8.4-10.2); Carbon Dioxide 21 mmol/L (22-32); Chloride 95 mmol/L (98-107); Estimated Glomerular Filt Rate > 60.0 mL/min (>60); Globulin 3.1 g/dL (1.7-4.1); Glucose 63 mg/dL (70-100); HEMOLYSIS < 15 (0-50); Potassium 4.5 mmol/L (3.4-5.1); Sodium 130 mmol/L (137-145); Total Protein 7.4 g/dL (6.3-8.2)
[2021-03-24 14:13] LABS: Troponin I < 0.012 ng/mL (0.01-0.034)
--- NOTE | 2021-03-24 14:16 | DI.US.S_ITS ---
PROCEDURE: US ABDOMEN COMPLETE INDICATIONS: LIVER FAILURE - PROBABLE TYLENOL OVERDOSE TECHNIQUE: Real-time scanning was performed of the abdominal and retroperitoneal organs, with image documentation. Color and pulse Doppler interrogation was also performed of the hepatic and splenic vessels, or of the lesion of interest. COMPARISON: None. FINDINGS: Liver: Hepatic parenchyma shows diffuse increased echogenicity consistent with fatty infiltration. No focal lesion. Gallbladder: Sonolucent without evidence cholelithiasis, gallbladder wall thickening or pericholecystic fluid. No sonographic Guadarrama sign. Biliary ducts: No intrahepatic biliary ductal dilatation. Extrahepatic bile duct is not well seen intrahepatic bile duct is within normal limits 1.4 m. Spleen: Spleen is normal in size and homogeneous in echotexture. Pancreas: Visualized portions of the pancreas appear normal. Kidneys: Both kidneys are normal in size and echotexture. Right kidney measures 9.9 cm long; left kidney measures 10.5 cm long. No hydronephrosis or nephrolithiasis. No solid renal masses. Aorta: Visualized abdominal aorta is normal in caliber at less than 3 cm. Iliacs: Proximal common iliac arteries are normal in caliber at less than 2.5 cm. IVC: Intrahepatic inferior vena cava is patent. Miscellaneous: No free abdominal fluid. IMPRESSION: Hepatic fatty infiltration without focal mass lesion Approved by: Denis Boswell M.D. on 03/24/2021 at 14:25
[2021-03-24 14:21] LABS: Albumin 4.3 g/dL (3.5-5.0); Albumin Globulin Ratio 1.4 (1.0-2.8); Alkaline Phosphatase 105 U/L (38-126); Bilirubin Conjugated 2.9 md/dL (0.0-0.3); Bilirubin Total 9.6 mg/dL (0.2-1.3); Bilirubin Unconjugated 5.4 mg/dL (0.0-1.1); HEMOLYSIS < 15 (0-50); Lipase 72 U/L (23-300); Total Protein 7.3 g/dL (6.3-8.2)
[2021-03-24 14:31] LABS: Alanine Aminotransferase 2353 IU/L (<35); Aspartate Aminotransferase 5719 IU/L (14-36)
[2021-03-24] MEDS: WATER IV ×3 (14:31→19:07)
[2021-03-24] MEDS: ACETYLCYSTEINE IV ×3 (14:31→18:51)
[2021-03-24] MEDS: DEXTROSE 5% IV ×3 (14:31→19:07)
[2021-03-24 14:32] LABS: Alanine Aminotransferase 2353 IU/L (<35); Aspartate Aminotransferase 5719 IU/L (14-36)
[2021-03-24 14:34] LABS: Lactate (Lactic Acid) 4.7 mmol/L (0.7-2.1)
[2021-03-24 14:42] LABS: Prothrombin Time 34.5 SECONDS (10.1-12.7)
[2021-03-24 15:16] LABS: Ethanol (ETOH) < 10 mg/dL; Salicylate < 1.0 mg/dL (<20)
[2021-03-24 15:17] LABS: Acetaminophen 14 ug/mL (10-30)
[2021-03-24 16:10] LABS: Reflexed Lactate in 2 Hours Y
[2021-03-24] MEDS: LORazepam 2 MG/ML INJ 0.5 MG IV ×2 (16:17→23:15)
[2021-03-24 16:50] LABS: Lactate 2HR (Lactic Acid Rflx) 5.1 mmol/L (0.7-2.1)
[2021-03-24 17:24] LABS: Fractionated Inspired Oxygen 21; HCO3 ABG 21 mmol/L (22-26); Oxygen Saturation ABG 98 % (95-100); PO2 ABG 95 mmHg (80-100); TCO2 ABG 22 mmol/L (21-31); pH ABG 7.42 (7.35-7.45)
[2021-03-24] MEDS: SODIUM CHLORIDE 0.9% 1,000 ML 1000 ML IV (17:32)
[2021-03-24 18:28] LABS: COVID19 - ADMIT (NP swab/PCR) Negative (Negative)
[2021-03-24] MEDS: SODIUM CHLORIDE 0.45% IV (18:51)
[2021-03-24] MEDS: ACYCLOVIR IV (19:07)
[2021-03-24 19:11] LABS: Ammonia (NH3) < 9 umol/L (9-30)
[2021-03-24] MEDS: FOMEPIZOLE 1.5 GM/1.5 ML 1.1 EACH IV (21:34)
[2021-03-24 23:33] LABS: Lactate (Lactic Acid) 2.5 mmol/L (0.7-2.1)
--- NOTE | 2021-03-25 00:03 | PC.NURSE ---
2345: Pt left w/[facility]. Medicated for nausea before d/c. Lactate drawn before d/c and results called to and notified that pt was on her way. Friend Sheryl updated on visitor policy and pt departure per pt request. Report called to nurse Denny.
[2021-03-25 01:18] LABS: Reflexed Lactate in 2 Hours Y
[2021-03-25 07:10] LABS: HBsAg Screen Negative (Negative); Hepatitis A Antibody IgM Negative (Negative); Hepatitis B Core Antibody IgM Negative (Negative); Hepatitis C Antibody 0.1 s/co ratio (0.0-0.9)
[2021-03-27 16:15] LABS: ANA Screen, IFA Negative (.); CMV DNA, Quant Real Time PCR Negative (Negative)
[2021-03-30 04:46] LABS: HSV 1 DNA Negative (Negative); HSV 2 DNA Negative (Negative); Varicella Zoster PCR Negative (Negative)
[2021-03-31 05:44] LABS: Epstein-Barr DNA Quant, PCR Negative copies/mL (Negative)
== END 2021-03-24 23:45 | disposition short-term general hospital (02) ==
PROVIDERS: Emergency Medicine; Emergency Provider Emergency Medicine
DX: K72.00 Acute and subacute hepatic failure without coma (principal); T39.1X1A Poisoning by 4-Aminophenol derivatives, accidental (unintentional), initial encounter; Z20.822 Contact with and (suspected) exposure to COVID-19
CPT/HCPCS: 29105; 36415; 36600; 76700; 80053; 80074; 80076; 80320; 80329; 82140; 82805; 83605; 83690; 84484; 85025; 85610; 86038; 87497; 87529; 87635; 87798; 93005; 93010; 96361; 96365; 96366; 96368; 96375; 96376; 99285; 99291; C9803; G0480; J0132; J2060; J2405; J7050